=== PATIENT | female | born 2000 | race Caucasian/White ===

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

== ENCOUNTER → 2020-01-08 12:10 | Outpatient (BNVA) | payer SELFPAY | PROVIDERS: PCP Nurse Practitioner; Referring Provider Nurse Practitioner Family; Visit Provider Nurse Practitioner Family | DX: R10.9 Unspecified abdominal pain (principal) | CPT/HCPCS: 81000; 81025; 87529 ==

== ENCOUNTER → 2020-05-13 15:35 | Outpatient (BNVA) | payer OTHER, SELFPAY | PROVIDERS: PCP Nurse Practitioner | DX: Z11.59 Encounter for screening for other viral diseases (principal) | CPT/HCPCS: 87635 ==

== ENCOUNTER → 2020-12-16 17:03 | Outpatient (BNVA) | payer SELFPAY | PROVIDERS: PCP Nurse Practitioner Family; Visit Provider Family Medicine Adult Medicine | DX: N39.0 Urinary tract infection, site not specified (principal); Z30.41 Encounter for surveillance of contraceptive pills | CPT/HCPCS: 81000; 81025 ==

== ENCOUNTER → 2021-03-25 11:29 | Outpatient (BNVA) | payer OTHER, SELFPAY | PROVIDERS: PCP Nurse Practitioner Family; Visit Provider Registered Nurse Neonatal Intensive Care | DX: Z20.822 Contact with and (suspected) exposure to COVID-19 (principal); J40 Bronchitis, not specified as acute or chronic | CPT/HCPCS: 87635 ==

== ENCOUNTER → 2021-04-30 11:45 | Outpatient (BNVA) | payer SELFPAY | PROVIDERS: PCP Nurse Practitioner Family; Visit Provider Family Medicine | DX: E28.2 Polycystic ovarian syndrome (principal); F41.9 Anxiety disorder, unspecified; F42.9 Obsessive-compulsive disorder, unspecified; L65.9 Nonscarring hair loss, unspecified; N39.0 Urinary tract infection, site not specified; Z30.41 Encounter for surveillance of contraceptive pills; Z68.41 Body mass index [BMI] 40.0-44.9, adult; Z76.89 Persons encountering health services in other specified circumstances | CPT/HCPCS: 80053; 83036; 84443; 85025 ==

== ENCOUNTER → 2021-05-28 13:44 | Outpatient (BNVA) | payer SELFPAY | PROVIDERS: PCP Family Medicine; Visit Provider Nurse Practitioner | DX: D50.9 Iron deficiency anemia, unspecified (principal) | CPT/HCPCS: 82728; 83550; 85014; 85018 ==

== ENCOUNTER → 2021-06-19 13:49 | Outpatient (BNVA) | payer SELFPAY | PROVIDERS: PCP Family Medicine; Visit Provider Family Medicine | DX: L65.9 Nonscarring hair loss, unspecified (principal); D50.9 Iron deficiency anemia, unspecified; F41.1 Generalized anxiety disorder; F41.0 Panic disorder [episodic paroxysmal anxiety] | CPT/HCPCS: 82306; 82728; 83550; 84439; 84443; 84481; 85014; 85018 ==

== ENCOUNTER 2021-07-24 18:52 | Emergency (ER) | payer SELFPAY ==
[2021-07-24 19:05] VITALS: BP 145/94; PULSE 101; RESP 18; TEMP 36.3; O2SAT 98; BMI 39.4
--- NOTE | 2021-07-24 19:16 | ED_ITS ---
HPI - Dental/Oral General: Chief complaint: Dental/Oral Stated complaint: [place] Teeth Pain\Jaw Crocked Time Seen by Provider: 07/24/21 19:12 Source: patient Mode of arrival: ambulatory Limitations: no limitations History of Present Illness: HPI Narrative: 21-year-old female who states that her wisdom teeth been coming in for months causing her pain for months and feeling like her jaws malaligned. States pain worsened today she rates it a 3 out of 10 denies any difficulty swallowing denies any fever denies any neck pain. She has not seen anyone for this. Associated symptoms: Denies fever(s) Review of Systems Const: Denies: fever(s), chills, body aches or change in appetite Eyes: Denies: blurry vision or eye discomfort ENMT: Reports: dental pain; Denies: throat pain Card: Denies: chest pain Resp: Denies: dyspnea GI: Denies: abdominal pain, nausea, vomiting or diarrhea : Denies: dysuria Musc: Denies: neck pain or back pain Skin/Breast: Denies: rash Neuro: Denies: headache(s) Psych: Denies: depression Gucci/Lymph: Denies: easy bruising All/Imm: Denies: urticaria PFSH ED PFSH: Medical History Anxiety No pertinent past medical history neghx: htn,dm,thyroid,dvt/pe Obsessive compulsive disorder PCOS (polycystic ovarian syndrome) Surgical History No pertinent past surgical history Family History Grandmother Ovarian cancer Maternal-- dx age 70 Uterine cancer Maternal-- dx age 70 Stroke Maternal Denies family history of Colon cancer Diabetes Heart disease Hypercholesteremia Breast cancer Hypertension Thyroid disease Social History Smoking and tobacco status: never smoked Alcohol intake: never Additional social history: - Tobacco use: Never Alcohol use: denies Drug use: denies Female Reproductive History: Date of last menstrual period: 11/29/19 Para: 0 Physical Exam Const: COMMON NORMALS: no acute distress, patient oriented x3 and healthy appearing HENMT: COMMON NORMALS: normocephalic and atraumatic HEAD & SCALP: normocephalic and atraumatic OTHER: No inflammation or abscess wisdom teeth are coming in painful to touch Eye: COMMON NORMALS: Equal, round and reactive pupils present and EOMs intact bilaterally PUPIL: Yes Equal, round and reactive pupils present Neck/C-Spine: COMMON NORMALS: full ROM and supple Chest: COMMONS NORMALS: normal inspection of the chest and normal palpation of entire chest wall Resp: COMMON NORMALS: normal respiratory effort, No retractions, No use of accessory muscles and clear to auscultation bilaterally AUSCULTATION: clear to auscultation bilaterally Cardio: COMMON NORMALS: regular rate, regular rhythm and No murmurs present (Cardio) RATE: regular rate RHYTHM: regular rhythm GI: COMMON NORMALS: Normal to inspection, nondistended, normoactive bowel sounds present, Soft to palpation, non-tender and no masses PALPATION: Yes Soft to palpation Extremity: COMMON NORMALS: normal to inspection and full ROM Neuro: COMMON NORMALS: patient oriented x3, moves all extremities and no focal motor deficits Psych: COMMON NORMALS: mental status grossly normal, Normal thought process present and cooperative THOUGHT PROCESS: Normal thought process present Skin: COMMON NORMALS: no rashes or lesions noted and no wounds GENERAL SKIN EXAM: no rashes or lesions noted Course Vital Signs: Vital signs: Vital Signs Temperature 97.3 F L 07/24/21 19:05 Pulse Rate 101 H 07/24/21 19:05 Respiratory Rate 18 07/24/21 19:05 Blood Pressure 145/94 07/24/21 19:05 Pulse Oximetry 98 07/24/21 19:05 MDM - Dental/Oral MDM Narrative: Medical decision making narrative: Patient presents with dental pain from her wisdom teeth coming in she is well-appearing here no abscess no trismus she stable for discharge will prescribe her hydrocodone she is to follow-up with a dentist Discharge Plan Discharge Patient Disposition: Home Clinical Impression: Pain, dental Condition: Stable Prescriptions: New hydrocodone-acetaminophen 5-325 mg tablet 1 tab PO Q6H PRN (Reason: pain) Qty: 14 RF: 0 No Action albuterol sulfate [Ventolin HFA] 90 mcg/actuation HFA aerosol inhaler 2 puff inhalation Q6H PRN (Reason: shortness of breath or wheezing) Qty: 6.7 RF: 0 venlafaxine 37.5 mg capsule,extended release 24hr 37.5 mg PO DAILY Qty: 30 RF: 1 ibuprofen-diphenhydramine cit [Ibuprofen PM] 200-38 mg tablet 2 tab PO BEDTIME PRN (Reason: Headache) RF: 0 ondansetron 4 mg tablet,disintegrating 4 mg PO Q8H PRN (Reason: nausea and vomiting) Qty: 14 RF: 0 norgestimate-ethinyl estradiol [Sprintec (28)] 0.25-35 mg-mcg tablet 1 tab PO ONCE Qty: 84 RF: 3 Discharge Orders: Discharge ED (Routine); Ordered 07/24/21 Ordered By: Everett Peter Referrals: Jacob Parikh DO [Primary Care Provider] - Discharge Diet: Advance as tolerated Discharge Activity: Resume usual activity Patient Instructions: Toothache (ED), Opioid Safety Coding Level of Care Code ED Tactical/Mobile Watch Officer for Sandhya Davis
[2021-07-24] MEDS: HYDROcodone-acetaminophen 5-325 mg Tablet 1 TAB PO (19:35)
[2021-07-24 19:37] VITALS: RESP 16
== END 2021-07-24 19:38 | disposition home or self-care (01) ==
PROVIDERS: Emergency Provider Emergency Medicine; PCP Family Medicine
DX: K08.89 Other specified disorders of teeth and supporting structures (principal)
CPT/HCPCS: 99282

== ENCOUNTER → 2021-08-29 11:58 | Outpatient (BNVA) | payer SELFPAY | PROVIDERS: PCP Family Medicine; Visit Provider Nurse Practitioner | DX: Z20.828 Contact with and (suspected) exposure to other viral communicable diseases (principal) | CPT/HCPCS: 87635 ==

== ENCOUNTER → 2022-12-01 10:06 | Outpatient (BNVA) | payer OTHER, SELFPAY | PROVIDERS: PCP Family Medicine; Visit Provider Family Medicine | DX: Z68.41 Body mass index [BMI] 40.0-44.9, adult (principal) | CPT/HCPCS: 80053; 80061; 83036; 85025 ==

== ENCOUNTER 2022-12-09 10:12 | Emergency (ER) | payer OTHER, SELFPAY ==
[2022-12-09 10:19] VITALS: BP 163/100; PULSE 113; RESP 17; TEMP 36.6; O2SAT 95; BMI 41.8
--- NOTE | 2022-12-09 11:11 | W.ED.GENADLT ---
HPI - General Adult General: Chief complaint: Upper Respiratory Infection Stated complaint: abd pain/n/v Time Seen by Provider: 12/09/22 10:41 Source: patient Mode of arrival: ambulatory Limitations: no limitations History of Present Illness: Patient is a 22-year-old female presents to ED today with a complaint of sore throat, cough, congestion, body aches, fevers of up to 102, nausea, and vomiting. She states sore throat seem to start first and presented approximately 3 to 4 days ago and the other symptoms have progressed from there. She states nausea and vomiting has only been present today. No bloody emesis. She reports some mild abdominal cramping. No diarrhea. Denies sick contacts. She states she initially thought symptoms might be related to COVID but has done two home COVID test with both which came back as negative. Severity: moderate Relieving factors: none Exacerbating factors: none Associated symptoms: Reports nausea and vomiting; Deny chest pain, headache(s) or rash Treatments prior to arrival: none Review of Systems Const: Reports: fever(s) and body aches Eyes: Denies: change in vision, blurry vision, photophobia, floaters or seeing flashes ENMT: Reports: throat pain, odynophagia and nasal congestion; Denies: ear or mastoid pain or nasal discharge Card: Denies: chest pain Resp: Reports: productive cough and chest congestion; Denies: wheezing or hemoptysis GI: Reports: abdominal pain (cramping), nausea and vomiting; Denies: hematemesis or diarrhea : Denies: flank pain, dysuria or hematuria Musc: Denies: neck pain, back pain, extremity pain or joint pain Skin/Breast: Denies: rash Neuro: Denies: headache(s), numbness in extremities, weakness in extremities, sensory changes or dizziness PFS ED PFSH: Medical History Anxiety with depression BMI 40.0-44.9, adult Contraceptive management Dyspareunia Generalized anxiety disorder with panic attacks Genital herpes Viral culture positive for HSV-1 Microcytic anemia No pertinent past medical history neghx: htn,dm,thyroid,dvt/pe Obsessive compulsive disorder PCOS (polycystic ovarian syndrome) TMJ (temporomandibular joint syndrome) Surgical History No pertinent past surgical history Family History Grandmother Ovarian cancer Maternal-- dx age 70 Uterine cancer Maternal-- dx age 70 Stroke Maternal Denies family history of Colon cancer Diabetes Heart disease Hypercholesteremia Breast cancer Hypertension Thyroid disease Social History Smoking and tobacco status: current every day smoker e-cigarettes E-Cigarette Details: vaporizer device Alcohol intake: never Lives independently: Yes Marital status: Single Number of children: 0 Current occupational status: employed 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 Current gender identity: Female Special vincent needs: No Agree to transfusion: Yes Additional social history: - Tobacco use: Never Alcohol use: denies Drug use: denies Female Reproductive History: Para: 0 Physical Exam Const: COMMON NORMALS: no acute distress, patient oriented x3, no limitations, alert and well nourished GENERAL APPEARANCE: cooperative NUTRITIONAL APPEARANCE: obese ORIENTATION/CONSCIOUSNESS: Yes awake, Yes oriented to person, Yes oriented to place and Yes oriented to time HENMT: COMMON NORMALS: normocephalic, atraumatic and Normal external nose present HEAD & SCALP: normal to inspection, normocephalic and atraumatic FACE & SINUS: normal facial exam NOSE: Normal external nose present MOUTH: Normal oral and palatal mucosa present, lip normal and tongue normal THROAT: posterior oropharynx normal, uvula midline and abnormal tonsil (small exudate L tonsil) Eye: GENERAL EYE: appearance normal, both eyes and all related structures Neck/C-Spine: COMMON NORMALS: full ROM, no lymphadenopathy and no meningeal signs Chest: COMMONS NORMALS: normal inspection of the chest and normal palpation of entire chest wall Resp: COMMON NORMALS: normal respiratory effort and clear to auscultation bilaterally AUSCULTATION: clear to auscultation bilaterally Cardio: COMMON NORMALS: regular rate and regular rhythm RATE: regular rate RHYTHM: regular rhythm OTHER: triage vitals show tachycardia but patient on monitor during my exam and HR in the 90s GI: COMMON NORMALS: Normal to inspection, nondistended, normoactive bowel sounds present, Soft to palpation, non-tender, No hepatosplenomegaly present and no masses PALPATION: Yes Soft to palpation and Yes No hepatosplenomegaly present : COMMON NORMALS: Yes no CVA tenderness BLADDER/KIDNEY EXAM: Yes no CVA tenderness Back/Pelvis: COMMON NORMALS: no CVA tenderness Extremity: COMMON NORMALS: normal to inspection GENERAL: Yes normal exam except as noted Neuro: CYNTHIA COMA SCALE: document GCS findings Cynthia coma scale eye opening: Spontaneous Cynthia coma scale verbal response: Orientated [place] coma scale motor response: Obey commands Cynthia coma scale total score: 15 COMMON NORMALS: patient oriented x3 SENSORIUM/ORIENTATION: Yes alert, Yes oriented to person, Yes oriented to place and Yes oriented to time MENINGEAL SIGNS: Yes no meningeal signs Skin: COMMON NORMALS: no rashes or lesions noted GENERAL SKIN EXAM: no rashes or lesions noted Course Vital Signs: Vital signs: Vital Signs Temperature 97.8 F 12/09/22 10:19 Pulse Rate 113 H 12/09/22 10:19 Respiratory Rate 17 12/09/22 10:19 Blood Pressure 163/100 12/09/22 10:19 Pulse Oximetry 97 12/09/22 12:06 Oxygen Delivery Me thod Room Air 12/09/22 12:06 [facility] - General Adult Medical Decision Making Patient appears in no acute distress. Vital signs are stable. She was initially triaged with tachycardia however this resolved and during my exam heart rate in the 90s. She is hypertensive. Recommend she keep a blood pressure log of this and follow-up with primary care. Nausea improved while here and was able to eat/drink without issues. She will be sent home with a prescription for Zofran. Blood work overall is unremarkable. CXR personal interpretation is suspicious for left lower lobe pneumonia. Respiratory panel collected and was pending at time of discharge but is at this time and positive for adenovirus. She was placed on antibiotics for the LLL pneumonia. Recommend follow-up with primary care in a few days if symptoms do not seem to be improving. Return ED precautions given. Lab Data 12/09/22 11:19 12/09/22 11:19 Laboratory Results WBC 5.0 10^3/uL (4.0-10.0) 12/09/22 11:19 RBC 4.58 10^6/uL (4.1-5.3) 12/09/22 11:19 Hgb 12.9 g/dL (11.5-15.3) 12/09/22 11:19 Hct 39.7 % (37.0-47.0) 12/09/22 11:19 MCV 86.7 fl (81-99) 12/09/22 11:19 MCH 28.2 pg (28.0-34.0) 12/09/22 11:19 MCHC 32.5 g/dL (30.0-36.0) 12/09/22 11:19 RDW 12.0 % (12.1-15.1) L 12/09/22 11:19 Plt Count 163 10^3/cmm (130-400) 12/09/22 11:19 MPV 10.6 fL (7.4-10.4) H 12/09/22 11:19 Neut % (Auto) 80.1 % 12/09/22 11:19 Lymph % (Auto) 12.3 % 12/09/22 11:19 [place] % (Auto) 6.4 % 12/09/22 11:19 Eos % (Auto) 0.2 % 12/09/22 11:19 Baso % (Auto) 0.4 % 12/09/22 11:19 Neut # (Auto) 3.98 10^3/uL (1.8-7.7) 12/09/22 11:19 Lymph # (Auto) 0.6 10^3/uL (0.8-4.8) L 12/09/22 11:19 [place] # (Auto) 0.3 10^3/uL (0.2-0.9) 12/09/22 11:19 Eos # (Auto) 0.0 10^3/uL (0.0-0.8) 12/09/22 11:19 Baso # (Auto) 0.0 10^3/uL (0.0-0.1) 12/09/22 11:19 Nucleated RBC % (auto) 0 % 12/09/22 11:19 Nucleated RBCs # 0.0 /100WBC 12/09/22 11:19 Sodium 137 mmol/L (136-145) 12/09/22 11:19 Potassium 3.5 mmol/L (3.5-5.1) 12/09/22 11:19 Chloride 103 mmol/L (98-107) 12/09/22 11:19 Carbon Dioxide 22 mmol/L (22-29) 12/09/22 11:19 Anion Gap 15.5 (5-19) 12/09/22 11:19 BUN 7 mg/dL (6-20) 12/09/22 11:19 Creatinine 0.6 mg/dL (0.5-0.9) 12/09/22 11:19 GFR Calculation 125.0 mL/min (90-130) 12/09/22 11:19 Glucose 107 mg/dL (65-115) 12/09/22 11:19 Calculated Osmolality 282 mOsm/kg (285-295) L 12/09/22 11:19 Calcium 8.3 mg/dL (8.5-10.5) L 12/09/22 11:19 Total Bilirubin 0.6 mg/dL (0.15-1.2) 12/09/22 11:19 AST 14 U/L (0-32) 12/09/22 11:19 ALT 16 U/L (0-33) 12/09/22 11:19 Alkaline Phosphatase 54 U/L (35-105) 12/09/22 11:19 Total Protein 7.0 g/dL (6.6-8.7) 12/09/22 11:19 Albumin 3.9 g/dL (3.5-5.2) 12/09/22 11:19 Globulin 3.1 g/dL (1.3-4.6) 12/09/22 11:19 HCG, Qual Negative (Negative) 12/09/22 11:11 Nasal Influ A H1 2009 PCR Not detected (NOT DETECT) 12/09/22 11:50 Adenovirus (PCR) Detected (NOT DETECT) A 12/09/22 11:50 C. pneumoniae DNA (PCR) Not detected (NOT DETECT) 12/09/22 11:50 Coronavirus 229E (PCR) Not detected (NOT DETECT) 12/09/22 11:50 Human Metapneumovir PCR Not detected (NOT DETECT) 12/09/22 11:50 Influenza A (H1) PCR Not detected (NOT DETECT) 12/09/22 11:50 Influenza A (H3) PCR Not detected (NOT DETECT) 12/09/22 11:50 Influenza Type A (PCR) Not detected (NOT DETECT) 12/09/22 11:50 Influenza Type B (PCR) Not detected (NOT DETECT) 12/09/22 11:50 M. pneumoniae (PCR) Not detected (NOT DETECT) 12/09/22 11:50 Parainfluenza 1 (PCR) Not detected (NOT DETECT) 12/09/22 11:50 Parainfluenza 2 (PCR) Not detected (NOT DETECT) 12/09/22 11:50 Parainfluenza 3 (PCR) Not detected (NOT DETECT) 12/09/22 11:50 Parainfluenza 4 (PCR) Not detected (NOT DETECT) 12/09/22 11:50 RSV Type A (PCR) Not detected (NOT DETECT) 12/09/22 11:50 RSV Type B (PCR) Not detected (NOT DETECT) 12/09/22 11:50 Entero/Rhino (PCR) Not detected (NOT DETECT) 12/09/22 11:50 SARS-CoV-2 (PCR) Not detected (NOT DETECT) 12/09/22 11:50 Group A Strep Rapid Negative (Negative) 12/09/22 11:50 Discharge Plan Discharge Patient Disposition: Home Clinical Impression: Left lower lobe pneumonia Qualifiers: Pneumonia type: due to unspecified organism Qualified Code(s): J18.9 - Pneumonia, unspecified organism Nausea and vomiting Qualifiers: Vomiting type: unspecified Qualified Code(s): R11.2 - Nausea with vomiting, unspecified Condition: Stable Prescriptions: New azithromycin 250 mg tablet See Rx Instructions .ROUTE .COMPLEX Qty: 6 0RF Rx Instructions: take 500 mg today (day 1), then 250 mg for 4 days (days 2-5) ondansetron 4 mg tablet,disintegrating 4 mg PO Q8H PRN (Reason: nausea and vomiting) Qty: 14 0RF amoxicillin-pot clavulanate 875-125 mg tablet 1 tab PO BID Qty: 14 0RF No Action albuterol sulfate [Ventolin HFA] 90 mcg/actuation HFA aerosol inhaler 2 puff inhalation Q6H PRN (Reason: shortness of breath or wheezing) Qty: 6.7 0RF venlafaxine 150 mg capsule,extended release 24hr 150 mg PO DAILY Qty: 30 0RF buspirone 5 mg tablet 5 mg PO BID Qty: 60 0RF sumatriptan succinate 25 mg tablet See Rx Instructions PO .COMPLEX Qty: 10 0RF Rx Instructions: take 1 tab at onset of headache; if no relief may repeat 1 tab after at least 2 hrs; max = 4 tabs/24 hr PO mirtazapine 15 mg tablet See Rx Instructions .ROUTE .COMPLEX Dose Instruction: TAKE 1 TABLET BY MOUTH one hour before bedtime EVERY DAY FOR mental health Rx Instructions: TAKE 1/2 TABLET BY MOUTH one hour before bedtime x 7 days norgestimate-ethinyl estradiol [Sprintec (28)] 0.25-35 mg-mcg tablet 1 tab PO ONCE Qty: 84 3RF Discharge Orders: Discharge ED (Routine); Ordered 12/09/22 Ordered By: Esmer Gama Referrals: Pawan Walsh MD [Primary Care Provider] - Coding Level of Care Code ED Behavioral Health Therapist for Sandhya Davis
[2022-12-09 11:27] LABS: Basophils % 0.4 %; Eosinophils % 0.2 %; Hematocrit 39.7 % (37.0-47.0); Hemoglobin 12.9 g/dL (11.5-15.3); Lymphocytes # 0.6 10^3/uL (0.8-4.8); Lymphocytes % 12.3 %; Mean Corpuscular HGB Conc 32.5 g/dL (30.0-36.0); Mean Corpuscular Hemoglobin 28.2 pg (28.0-34.0); Mean Corpuscular Volume 86.7 fl (81-99); Mean Platelet Volume 10.6 fL (7.4-10.4); Monocytes # 0.3 10^3/uL (0.2-0.9); Monocytes % 6.4 %; Neutrophils # 3.98 10^3/uL (1.8-7.7); Neutrophils % 80.1 %; Nucleated Red Blood Cells % 0 %; Platelet Count 163 10^3/cmm (130-400); Red Blood Count 4.58 10^6/uL (4.1-5.3)
[2022-12-09] MEDS: sodium chloride 0.9% 1,000 ML 999 ML IV (11:30)
[2022-12-09] MEDS: ondansetron 2 mg/ML SDV 2 mL 4 MG IVP (11:30)
[2022-12-09 11:43] LABS: Alanine Aminotransferase 16 U/L (0-33); Albumin Level 3.9 g/dL (3.5-5.2); Alkaline Phosphatase 54 U/L (35-105); Anion Gap 15.5 (5-19); Aspartate Amino Transferase 14 U/L (0-32); Blood Urea Nitrogen 7 mg/dL (6-20); Calcium 8.3 mg/dL (8.5-10.5); Carbon Dioxide 22 mmol/L (22-29); Chloride 103 mmol/L (98-107); Globulin 3.1 g/dL (1.3-4.6); Glucose 107 mg/dL (65-115); Osmolality Calculated 282 mOsm/kg (285-295); Potassium 3.5 mmol/L (3.5-5.1); Sodium 137 mmol/L (136-145); Total Bilirubin 0.6 mg/dL (0.15-1.2)
[2022-12-09 12:06] VITALS: O2SAT 97
[2022-12-09 12:37] LABS: Rapid Strep A Test Negative (Negative)
--- NOTE | 2022-12-09 12:47 | XR_ITS ---
WS: [id number] EXAMINATION: XR chest 1V portable [id number] REASON FOR EXAM: cough, fevers COMPARISON: 11/17/2019 ORDER DATE: 12/09/2022 12:54 PM TECHNIQUE: A single, portable frontal chest x-ray was obtained. X-RAY FINDINGS: There is a poorly defined hazy opacity in the left base which obscures the left hemidiaphragm outline s lateral to the left heart border which is faintly defined. No pneumothorax. Cardiomediastinal silhouette is normal. No evidence for pulmonary edema. Soft tissue and osseous structures are unremarkable. No tubes or lines are present. XR/XR chest 1V portable [id number] IMPRESSION: There is a nonspecific increased opacity in the left base which unfortunately i s associated with the large breast presenting increased soft tissue density als o. There is probably either a small infiltrate and/or a small effusion in addit ion but could be better defined bilateral chest view or 15 degrees MAURITANIAN projecti on.
[2022-12-09 13:43] LABS: HCG, Serum Qual Negative (Negative)
[2022-12-09 13:49] LABS: Adenovirus Detected (NOT DETECT); Chlamydia Pneumoniae Not Detected (NOT DETECT); Coronavirus 229E,HKU1,NL63,OC4 Not Detected (NOT DETECT); Human Metapneumovirus Not Detected (NOT DETECT); Human Rhinovirus/Enterovirus Not Detected (NOT DETECT); Influenza A Not Detected (NOT DETECT); Influenza A H1 Not Detected (NOT DETECT); Influenza A H1-2009 Not Detected (NOT DETECT); Influenza A H3 Not Detected (NOT DETECT); Influenza B Not Detected (NOT DETECT); Mycoplasma Pneumoniae Not Detected (NOT DETECT); Parainfluenza Virus Type 1 Not Detected (NOT DETECT); Parainfluenza Virus Type 2 Not Detected (NOT DETECT); Parainfluenza Virus Type 3 Not Detected (NOT DETECT); Parainfluenza Virus Type 4 Not Detected (NOT DETECT); Respiratory Syncytial Virus A Not Detected (NOT DETECT); Respiratory Syncytial Virus B Not Detected (NOT DETECT); SARS-COV-2 Not Detected (NOT DETECT)
== END 2022-12-09 13:16 | disposition home or self-care (01) ==
PROVIDERS: Emergency Provider Physician Assistant; PCP Family Medicine
DX: J18.9 Pneumonia, unspecified organism (principal); R11.2 Nausea with vomiting, unspecified; Z20.822 Contact with and (suspected) exposure to COVID-19; F17.290 Nicotine dependence, other tobacco product, uncomplicated
CPT/HCPCS: 71045; 80053; 84703; 85025; 87081; 87486; 87581; 87633; 87880; 96361; 96374; 99284; J2405; J7030

== ENCOUNTER 2022-12-12 10:41 | Observation (INO) | payer OTHER, SELFPAY ==
[2022-12-12] VITALS (10 sets, daily range): BP systolic 96–139; BP diastolic 62–85; PULSE 81–107; RESP 16–17; TEMP 36.6–36.9; O2SAT 95–98; BMI 41.8
--- NOTE | 2022-12-12 11:04 | XRR_ITS ---
PROCEDURE INFORMATION: Exam: XR Chest Exam date and time: 12/12/2022 11:12 AM Age: 22 years old Clinical indication: Cough; Additional info: Pneumonia, otpt abx failure TECHNIQUE: Imaging protocol: Radiologic exam of the chest. Views: 2 views. COMPARISON: CT abdomen pelvis w con* [id number] 12/02/2019 2:00 PM FINDINGS: Lungs: Left basilar consolidation concerning for pneumonia. The remainder of the lung parenchyma is clear. Pleural spaces: No pneumothorax. No pleural effusion. Heart/Mediastinum: The cardiomediastinal silhouette is within normal limits. Bones/joints: Unremarkable. XR/XR chest 2V* [id number] IMPRESSION: Left basilar consolidation concerning for pneumonia.
[2022-12-12 11:38] LABS: Basophils % 0.3 %; Eosinophils % 0.9 %; Hematocrit 39.5 % (37.0-47.0); Hemoglobin 12.9 g/dL (11.5-15.3); Lymphocytes # 1.1 10^3/uL (0.8-4.8); Lymphocytes % 32.9 %; Mean Corpuscular HGB Conc 32.7 g/dL (30.0-36.0); Mean Corpuscular Volume 85.9 fl (81-99); Mean Platelet Volume 10.7 fL (7.4-10.4); Monocytes # 0.2 10^3/uL (0.2-0.9); Monocytes % 6.3 %; Neutrophils % 59.6 %; Nucleated Red Blood Cells % 0 %; Platelet Count 143 10^3/cmm (130-400); White Blood Count 3.2 10^3/uL (4.0-10.0)
[2022-12-12] MEDS: sodium chloride 0.9% 1,000 ML 999 ML IV (11:45)
[2022-12-12] MEDS: ondansetron 2 mg/ML SDV 2 mL 4 MG IVP (11:46)
[2022-12-12 11:59] LABS: Alanine Aminotransferase 16 U/L (0-33); Albumin Level 3.3 g/dL (3.5-5.2); Alkaline Phosphatase 43 U/L (35-105); Anion Gap 16.3 (5-19); Aspartate Amino Transferase 17 U/L (0-32); Blood Urea Nitrogen 4 mg/dL (6-20); Calcium 8.6 mg/dL (8.5-10.5); Carbon Dioxide 21 mmol/L (22-29); Chloride 97 mmol/L (98-107); Globulin 3.8 g/dL (1.3-4.6); Glucose 84 mg/dL (65-115); Lactate (Lactic Acid level) 0.8 mmol/L (0.5-2.2); Osmolality Calculated 268 mOsm/kg (285-295); Potassium 3.3 mmol/L (3.5-5.1); Sodium 131 mmol/L (136-145); Total Bilirubin 0.5 mg/dL (0.15-1.2); Total Protein 7.1 g/dL (6.6-8.7)
[2022-12-12 12:01] LABS: Bilirubin Urine Neg (Negative); Blood Urine 3+ (Negative); Glucose Urine UA Norm (Normal); Ketones Urine 1+ (Negative); Leukocyte Esterase Urine 1+ (Negative); Nitrate Urine Negative (Negative); Protein Urine Neg (Negative); Specific Gravity, Urine 1.005 (1.005-1.030); Sulfosalicylic Acid Urine Negative (Negative); Urine Appearance SL Hazy (CLEAR); Urine Color Yellow (Yellow); Urobilinogen Urine Norm (Negative); pH Urine 8 (5-7)
[2022-12-12 12:02] LABS: Add Urine Microscopic? YES
[2022-12-12 12:04] LABS: Bacteria Urine 2+ /hpf; Mucus Urine TRACE /hpf; WBC Urine 15-25 /hpf (0-5)
[2022-12-12 12:05] LABS: Add Urine Culture? No
--- NOTE | 2022-12-12 12:05 | W.ED.GENADLT ---
HPI - General Adult General: Chief complaint: General Medical Stated complaint: cough/sob/n/v/fever Time Seen by Provider: 12/12/22 10:43 History of Present Illness: Patient presents to the ER with complaints of worsening shortness of breath and pneumonia. Patient was originally seen on 411 diagnosed with pneumonia and was adenovirus positive, discharged home on azithromycin and Augmentin after she refused admission. 2 days later patient went to urgent care for worsening symptoms and fever these antibiotics were stopped and patient was placed on Levaquin. Patient took 1 dose yesterday and did not take her dose today. Patient states her fever got up to 103.8 and she has had intermittent nausea. Patient states that she is ready now to be admitted MD complaint: Pneumonia outpatient failure Onset (ago): day(s) (4 days ago) Location: chest (Left lower lobe pneumonia) Radiation: non-radiation Severity: moderate Relieving factors: none Exacerbating factors: none Associated symptoms: Reports cough, dyspnea, nausea, short of breath and vomiting; Deny chest pain, headache(s), rash or palpitations Treatments prior to arrival: other (2 days of Augmentin and azithromycin followed by 1 day of Levaquin) Review of Systems General: Reports: 10 or more systems reviewed and unremarkable except in HPI and below Const: Reports: fever(s), chills and body aches Eyes: Denies: change in vision Card: Denies: chest pain, palpitations or irregular heart rhythm Resp: Reports: dyspnea and productive cough GI: Reports: nausea and vomiting; Denies: abdominal pain or diarrhea : Denies: flank pain, difficulty voiding or dysuria Musc: Denies: neck pain or back pain Skin/Breast: Denies: rash or pruritus Neuro: Denies: headache(s), numbness in extremities or weakness in extremities Psych: Denies: anxiety or depression Endo: Denies: polyuria, polydipsia or tired all the time PFS ED PFSH: Medical History Anxiety with depression BMI 40.0-44.9, adult Contraceptive management Dyspareunia Generalized anxiety disorder with panic attacks Genital herpes Viral culture positive for HSV-1 Microcytic anemia No pertinent past medical history neghx: htn,dm,thyroid,dvt/pe Obsessive compulsive disorder PCOS (polycystic ovarian syndrome) TMJ (temporomandibular joint syndrome) Surgical History No pertinent past surgical history Family History Grandmother Ovarian cancer Maternal-- dx age 70 Uterine cancer Maternal-- dx age 70 Stroke Maternal Denies family history of Colon cancer Diabetes Heart disease Hypercholesteremia Breast cancer Hypertension Thyroid disease Social History Smoking and tobacco status: current every day smoker e-cigarettes E-Cigarette Details: vaporizer device Alcohol intake: never Lives independently: Yes Marital status: Single Number of children: 0 Current occupational status: employed 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 Current gender identity: Female Special vincent needs: No Agree to transfusion: Yes Additional social history: - Tobacco use: Never Alcohol use: denies Drug use: denies Female Reproductive History: Para: 0 Physical Exam Const: COMMON NORMALS: no acute distress, average body habitus, patient oriented x3, no limitations, healthy appearing, alert and well nourished HENMT: COMMON NORMALS: normocephalic, atraumatic, hearing grossly normal bilaterally, external ears normal and Normal external nose present HEAD & SCALP: normocephalic and atraumatic NOSE: Normal external nose present EXTERNAL EAR: Yes external ears normal Eye: COMMON NORMALS: Equal, round and reactive pupils present, EOMs intact bilaterally, conjunctivae normal and no scleral icterus CONJUNCTIVA: Yes conjunctivae normal PUPIL: Yes Equal, round and reactive pupils present Neck/C-Spine: COMMON NORMALS: full ROM, no lymphadenopathy, supple, no meningeal signs, no JVD and Thyroid normal THYROID: Thyroid normal Chest: COMMONS NORMALS: normal inspection of the chest and normal palpation of entire chest wall Resp: EFFORT & INSPECTION: Yes able to speak in complete sentences and Yes symmetric chest movement AUSCULTATION: rhonchi left lower Cardio: COMMON NORMALS: no JVD, regular rate, regular rhythm, S1 normal heart sound present and S2 normal heart sound present RATE: regular rate RHYTHM: regular rhythm HEART SOUNDS: S1 normal heart sound present and S2 normal heart sound present GI: COMMON NORMALS: Normal to inspection, nondistended, normoactive bowel sounds present, Soft to palpation, non-tender, No hepatosplenomegaly present and no masses PALPATION: Yes Soft to palpation and Yes No hepatosplenomegaly present : COMMON NORMALS: Yes no CVA tenderness BLADDER/KIDNEY EXAM: Yes no CVA tenderness Back/Pelvis: COMMON NORMALS: no CVA tenderness Neuro: COMMON NORMALS: patient oriented x3 SENSORIUM/ORIENTATION: Yes alert MENINGEAL SIGNS: Yes no meningeal signs Course Vital Signs: Vital signs: Vital Signs Temperature 98.4 F 12/12/22 10:51 Pulse Rate 107 H 12/12/22 10:51 Respiratory Rate 16 12/12/22 11:01 Blood Pressure 139/76 12/12/22 10:51 Pulse Oximetry 97 12/12/22 10:51 Oxygen Delivery Me thod Room Air 12/12/22 10:51 MDM - General Adult Medical Decision Making Presents to the ER with complaints of worsening pneumonia. Patient was seen here on 411 diagnosed with pneumonia put on Augmentin and azithromycin. 2 days later she felt like she was not improving she went to the urgent care these medicines were stopped and patient was placed on Levaquin 750. Patient presents to the ER today complaining of nausea vomiting fevers up to 103.8 and said she is even worse. Patient took her dose of Levaquin yesterday. Check chest x-ray was repeated which did show a left lower lobe pneumonia, blood work was obtained which showed a white count of 3.2 negative negative lactic acid and procalcitonin, lab work from her prior visit was reviewed which did show she was positive for adenovirus. It is thought since she could be considered outpatient failure that she may need to be inpatient with IV antibiotics. Dr. Villalpando was consulted he agreed to come down and see the patient in ER. Patient will be admitted for IV antibiotics. Differential Diagnosis Outpatient failure pneumonia. Medical Records I reviewed the patient's medical records. Lab Data I reviewed the patient's lab results. 12/12/22 11:27 12/12/22 11:27 Radiology Impressions Chest X-Ray 12/12/22 11:04 IMPRESSION: Left basilar consolidation concerning for pneumonia. Laboratory Results WBC 3.2 10^3/uL (4.0-10.0) L 12/12/22 11:27 RBC 4.60 10^6/uL (4.1-5.3) 12/12/22 11:27 Hgb 12.9 g/dL (11.5-15.3) 12/12/22 11: Hct 39.5 % (37.0-47.0) 12/12/22 11: MCV 85.9 fl (81-99) 12/12/22 11: MCH 28.0 pg (28.0-34.0) 12/12/22 11: MCHC 32.7 g/dL (30.0-36.0) 12/12/22 11: RDW 12.0 % (12.1-15.1) L 12/12/22 11: Plt Count 143 10^3/cmm (130-400) 12/12/22 11: MPV 10.7 fL (7.4-10.4) H 12/12/22 11: Neut % (Auto) 59.6 % 12/12/22 11: Lymph % (Auto) 32.9 % 12/12/22 11: [place] % (Auto) 6.3 % 12/12/22 11: Eos % (Auto) 0.9 % 12/12/22 11: Baso % (Auto) 0.3 % 12/12/22 11: Neut # (Auto) 1.90 10^3/uL (1.8-7.7) 12/12/22 11: Lymph # (Auto) 1.1 10^3/uL (0.8-4.8) 12/12/22 11: [place] # (Auto) 0.2 10^3/uL (0.2-0.9) 12/12/22 11: Eos # (Auto) 0.0 10^3/uL (0.0-0.8) 12/12/22 11: Baso # (Auto) 0.0 10^3/uL (0.0-0.1) 12/12/22 11: Nucleated RBC % (auto) 0 % 12/12/22 11: Nucleated RBCs # 0.0 /100WBC 12/12/22 11: Sodium 131 mmol/L (136-145) L 12/12/22 11: Potassium 3.3 mmol/L (3.5-5.1) L 12/12/22 11: Chloride 97 mmol/L (98-107) L 12/12/22 11:27 Carbon Dioxide 21 mmol/L (22-29) L 12/12/22 11:27 Anion Gap 16.3 (5-19) 12/12/22 11:27 BUN 4 mg/dL (6-20) L 12/12/22 11:27 Creatinine 0.6 mg/dL (0.5-0.9) 12/12/22 11:27 GFR Calculation 125.0 mL/min (90-130) 12/12/22 11:27 Glucose 84 mg/dL (65-115) 12/12/22 11:27 Calculated Osmolality 268 mOsm/kg (285-295) L 12/12/22 11:27 Lactate 0.8 mmol/L (0.5-2.2) 12/12/22 11:27 Calcium 8.6 mg/dL (8.5-10.5) 12/12/22 11: Magnesium 2.0 mg/dL (1.7-2.3) 12/12/22 11:27 Total Bilirubin 0.5 mg/dL (0.15-1.2) 12/12/22 11:27 AST 17 U/L (0-32) 12/12/22 11:27 ALT 16 U/L (0-33) 12/12/22 11:27 Alkaline Phosphatase 43 U/L (35-105) 12/12/22 11:27 Total Protein 7.1 g/dL (6.6-8.7) 12/12/22 11:27 Albumin 3.3 g/dL (3.5-5.2) L 12/12/22 11:27 Globulin 3.8 g/dL (1.3-4.6) 12/12/22 11:27 Procalcitonin 0.10 ng/mL (0-0.5) 12/12/22 11:27 HCG, Qual Negative (Negative) 12/12/22 11:27 Urine Color Yellow (Yellow) 12/12/22 11:28 Urine Appearance Sl hazy (CLEAR) A 12/12/22 11:28 Urine pH 8 (5-7) H 12/12/22 11:28 Ur Specific [place] 1.005 (1.005-1.030) 12/12/22 11:28 Urine Protein Neg (Negative) 12/12/22 11: Urine Glucose (UA) Norm (Normal) 12/12/22 11:28 Urine Ketones 1+ (Negative) H 12/12/22 11:28 Urine Blood 3+ (Negative) H 12/12/22 11:28 Urine Nitrate Negative (Negative) 12/12/22 11:28 Urine Bilirubin Neg (Negative) 12/12/22 11:28 Prot Sulfosalicylic Acd Negative (Negative) 12/12/22 11:28 Urine Urobilinogen Norm mg/dL (Negative) 12/12/22 11:28 Ur Leukocyte Esterase 1+ (Negative) H 12/12/22 11:28 Urine RBC 5-10 /hpf (0-2) H 12/12/22 11:28 Urine WBC 15-25 /hpf (0-5) H 12/12/22 11:28 Ur Squamous Epith Cells 10-15 /hpf (0-5) H 12/12/22 11:28 Amorphous Sediment Not Reportable 12/12/22 11:28 Urine Bacteria 2+ /hpf (NONE) H 12/12/22 11:28 Urine Mucus Trace /hpf 12/12/22 11:28 Discharge Plan Discharge Patient Disposition: Admitted As Inpatient Clinical Impression: Nausea and vomiting, Left lower lobe pneumonia Condition: Stable Prescriptions: No Action levofloxacin 750 mg tablet 750 mg PO DAILY 7 Days Qty: 7 0RF hydrocodone-acetaminophen 5-325 mg tablet 1 tab PO Q4H PRN (Reason: pain) 7 Days Qty: 28 0RF venlafaxine 150 mg capsule,extended release 24hr 150 mg PO DAILY Qty: 30 0RF buspirone 5 mg tablet 5 mg PO BID Qty: 60 0RF sumatriptan succinate 25 mg tablet See Rx Instructions PO .COMPLEX Qty: 10 0RF Rx Instructions: take 1 tab at onset of headache; if no relief may repeat 1 tab after at least 2 hrs; max = 4 tabs/24 hr PO norgestimate-ethinyl estradiol [Sprintec (28)] 0.25-35 mg-mcg tablet 1 tab PO ONCE Qty: 84 3RF ondansetron 4 mg tablet,disintegrating 4 mg PO Q8H PRN (Reason: nausea and vomiting) Qty: 14 0RF ibuprofen 200 mg Capsule 800 mg PO Q6H PRN (Reason: Pain) acetaminophen 325 mg Capsule 650 mg PO QID PRN (Reason: Pain) Referrals: Vaisler,Pawan, MD [Primary Care Provider] - Coding Level of Care Code ED Sales Service Assistant for Chg Susan
[2022-12-12 12:10] LABS: Slide Review Slide Review Perform
[2022-12-12 12:16] LABS: HCG, Serum Qual Negative (Negative)
[2022-12-12] MEDS: piperacillin-tazobactam 3.375 GM in sodium chloride 0.9% (plus) 50 ML IV (13:21)
[2022-12-12] MEDS: acetaminophen 500 mg Tablet 1000 MG PO (13:42)
--- NOTE | 2022-12-12 14:27 | P.HP_ITS ---
Providers/Chief Complaint Admitting Physician: Amos Izquierdo MD Primary Care Provider: Pawan Wlash MD Chief Complaint: cough/sob/n/v/fever History of Present Illness Jaqueline Anne is a 22 year old female with a past medical history of pcos, chronic low back pain, major depression, anxiety, obesity, who presents to [facility] who presents for complaints of cough, fever since last yesterday, progressing to poor appetite, nausea, and vomiting. Patient statest that since last wednesday she has had fever, cough, fatigue and malaise. She has been diagnosed with pneumonia, and has been on 2 course of oral antibiotics. But she coutinues to be symptomatic, but now has nausea, and vomiting, and is unable to keep down liquids. denies flank pain, has chronic back pain, no dysuria, no hematuria, denies chest pain, denies shortness of breath Review of Systems Const: Reports: fever(s), chills, fatigue and malaise GI: Reports: nausea Medications/Allergies Home Medications Medication Instructions Recorded Confirmed Last Taken Type norgestimate 0.25 mg-ethinyl 1 tab PO ONCE #84 tabs 06/02/22 12/12/22 12/11/22 Rx estradiol 35 mcg tablet (Sprintec (28)) buspirone 5 mg tablet 5 mg PO BID #60 tabs 12/01/22 12/12/22 12/11/22 Rx sumatriptan succinate 25 mg tablet See Rx Instructions PO .COMPLEX 12/01/22 12/12/22 Unknown Rx #10 tabs venlafaxine 150 mg 150 mg PO DAILY #30 caps 12/01/22 12/12/22 12/11/22 Rx capsule,extended release 24 hr ondansetron 4 mg disintegrating 4 mg PO Q8H PRN nausea and 12/09/22 12/12/22 Unknown Rx tablet vomiting #14 tabs hydrocodone 5 mg-acetaminophen 325 1 tab PO Q4H PRN pain 7 days #28 12/11/22 12/12/22 Unknown Rx mg tablet tabs levofloxacin 750 mg tablet 750 mg PO DAILY 7 days #7 tabs 12/11/22 12/12/22 Unknown Rx acetaminophen 325 mg capsule 650 mg PO QID PRN Pain 12/12/22 12/12/22 Unknown History ibuprofen 200 mg capsule 800 mg PO Q6H PRN Pain 12/12/22 12/12/22 Unknown History Allergies Allergy/AdvReac Type Severity Reaction Status Date / Time No Known Allergies Allergy Verified 12/11/22 17:41 PFSH Acute PFSH: Medical History Anxiety with depression BMI 40.0-44.9, adult Contraceptive management Dyspareunia Generalized anxiety disorder with panic attacks Genital herpes Viral culture positive for HSV-1 Microcytic anemia No pertinent past medical history neghx: htn,dm,thyroid,dvt/pe Obsessive compulsive disorder PCOS (polycystic ovarian syndrome) TMJ (temporomandibular joint syndrome) Surgical History No pertinent past surgical history Family History Grandmother Ovarian cancer Maternal-- dx age 70 Uterine cancer Maternal-- dx age 70 Stroke Maternal Denies family history of Colon cancer Diabetes Heart disease Hypercholesteremia Breast cancer Hypertension Thyroid disease Social History Smoking and tobacco status: current every day smoker e-cigarettes E-Cigarette Details: vaporizer device Alcohol intake: never Lives independently: Yes Marital status: Single Number of children: 0 Current occupational status: employed 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 Current gender identity: Female Special vincent needs: No Agree to transfusion: Yes Additional social history: - Tobacco use: Never Alcohol use: denies Drug use: denies Female Reproductive History: Para: 0 Vitals/I&O/Wt Last Vital Signs Temp 98.4 F 12/12/22 10:51 Pulse 107 H 12/12/22 10:51 Resp 16 12/12/22 11:01 BP 139/76 12/12/22 10:51 Pulse Ox 97 12/12/22 10:51 O2 Del Method Room Air 12/12/22 14:15 12/11/22 12/12/22 12/12/22 22:59 06:59 14:59 Intake Total 1050 / 1050 Balance 1050 / 1050 Weight last 48 hrs Weight 136.078 kg Physical Exam Const: COMMON NORMALS: no acute distress and patient oriented x3 HENMT: COMMON NORMALS: normocephalic HEAD & SCALP: normocephalic Eye: COMMON NORMALS: Equal, round and reactive pupils present Lymph: LYMPHATIC: lymphadenopathy Resp: COMMON NORMALS: normal respiratory effort, No retractions, No use of accessory muscles and clear to auscultation bilaterally AUSCULTATION: wheezes left lower and left upper Cardio: COMMON NORMALS: regular rate, regular rhythm, S1 normal heart sound present and S2 normal heart sound present RATE: regular rate RHYTHM: regular rhythm HEART SOUNDS: S1 normal heart sound present and S2 normal heart sound present GI: COMMON NORMALS: Normal to inspection, nondistended, normoactive bowel dave nds present, Soft to palpation and non-tender Extremity: COMMON NORMALS: no pedal edema Neuro: COMMON NORMALS: patient oriented x3, CN's II-XII intact bilaterally, moves all extremities, no focal motor deficits and no sensory deficits noted Psych: COMMON NORMALS: mental status grossly normal Data 12/12/22 11:27 12/12/22 11:27 Micro: Microbiology 12/12/22 13:09 Blood Culture - Preliminary Blood SPECIMEN COLLECTED A&P Assessment and plan (1) Left lower lobe pneumonia: (2) Nausea and vomiting: (3) Hypokalemia: (4) Hyponatremia: Plan Left lower lobe pneumonia PLAN -IV rocephin -IV azithromycin -respiratory viral panel -sputum culture -blood culture -duo neb treatment Hyponatremia, dehydration -IV fluids Hypokalemia -replace PO UTI -rocephin Nausea and vommiting -zofran full code lovenox for dvt prophylaxis Attestations Medical Necessity Statement*: patient needs hospitalization, outpatient with observation, for pneumoniae, hyponatremia, hypokalemia, uti Coding Level of Care Code Acute Code for [facility] Fwd Diagnoses Left lower lobe pneumonia J18.9 Nausea and vomiting R11.2 Hypokalemia E87.6 Hyponatremia E87.1
--- NOTE | 2022-12-12 14:58 | XRR_ITS ---
PROCEDURE INFORMATION: Exam: XR Abdomen Exam date and time: 12/12/2022 3:31 PM Age: 22 years old Clinical indication: Abdominal pain; Generalized; Additional info: Kidnsey stone TECHNIQUE: Imaging protocol: Radiologic exam of the abdomen. Views: Frontal supine view of the abdomen. 1 View. COMPARISON: CT abdomen pelvis w con* [id number] 12/02/2019 2:00 PM FINDINGS: Gastrointestinal tract: Nonspecific bowel gas pattern with mild increased gas in the GI tract. Findings could represent mild ileus. No obstructive pattern. Intraperitoneal space: No indication of free air. Multiple nonspecific pelvic calcifications are seen, similar in appearance to 2019 exam, likely pelvic phleboliths. Bones/joints: No acute osseous abnormality. XR/XR KUB portable [id number] IMPRESSION: Nonspecific bowel gas pattern with mild increased gas within the GI tract could indicate mild ileus. No obstructive pattern.
[2022-12-12] MEDS: ipratropium-albuterol 3 mL Neb INHALATION ×3 (15:24→23:48)
[2022-12-12] MEDS: pantoprazole 40 mg SDV IVP (15:50)
[2022-12-12] MEDS: enoxaparin 40 mg/0.4 mL Syringe SUBCUT (15:50)
[2022-12-12] MEDS: sodium chloride 0.9% 1,000 ML 100 ML IV (15:55)
[2022-12-12 15:57] LABS: Thyroid Stimulating Hormone 2.12 uIU/mL (0.27-4.20)
[2022-12-12 17:47] LABS: Adenovirus Detected (NOT DETECT); Chlamydia Pneumoniae Not Detected (NOT DETECT); Coronavirus 229E,HKU1,NL63,OC4 Not Detected (NOT DETECT); Human Metapneumovirus Not Detected (NOT DETECT); Human Rhinovirus/Enterovirus Not Detected (NOT DETECT); Influenza A Not Detected (NOT DETECT); Influenza A H1 Not Detected (NOT DETECT); Influenza A H1-2009 Not Detected (NOT DETECT); Influenza A H3 Not Detected (NOT DETECT); Influenza B Not Detected (NOT DETECT); Mycoplasma Pneumoniae Not Detected (NOT DETECT); Parainfluenza Virus Type 1 Not Detected (NOT DETECT); Parainfluenza Virus Type 2 Not Detected (NOT DETECT); Parainfluenza Virus Type 3 Not Detected (NOT DETECT); Parainfluenza Virus Type 4 Not Detected (NOT DETECT); Respiratory Syncytial Virus A Not Detected (NOT DETECT); Respiratory Syncytial Virus B Not Detected (NOT DETECT); SARS-COV-2 Not Detected (NOT DETECT)
[2022-12-13] MEDS: sodium chloride 0.9% 1,000 ML 100 ML IV (01:01)
[2022-12-13 03:36] LABS: Hematocrit 34.6 % (37.0-47.0); Hemoglobin 11.1 g/dL (11.5-15.3); Mean Corpuscular HGB Conc 32.1 g/dL (30.0-36.0); Mean Corpuscular Hemoglobin 28.3 pg (28.0-34.0); Mean Corpuscular Volume 88.3 fl (81-99); Mean Platelet Volume 10.9 fL (7.4-10.4); Platelet Count 133 10^3/cmm (130-400); Red Blood Count 3.92 10^6/uL (4.1-5.3); Red Cell Distribution Width 12.2 % (12.1-15.1); White Blood Count 3.1 10^3/uL (4.0-10.0)
[2022-12-13 03:54] LABS: Carbon Dioxide 24 mmol/L (22-29); Glucose 93 mg/dL (65-115); Magnesium 2.1 mg/dL (1.7-2.3); Phosphorus 3.2 mg/dL (2.5-4.5)
[2022-12-13 04:00] VITALS: BP 98/60; PULSE 76; PULSE 88; RESP 16; TEMP 36.3; O2SAT 97; O2SAT 98
[2022-12-13 04:07] LABS: Anion Gap 12.4 (5-19); Chloride 104 mmol/L (98-107); Sodium 137 mmol/L (136-145)
[2022-12-13] MEDS: ipratropium-albuterol 3 mL Neb INHALATION ×2 (04:11→08:28)
[2022-12-13 04:21] LABS: Blood Urea Nitrogen 5 mg/dL (6-20); Calcium 8.2 mg/dL (8.5-10.5); Osmolality Calculated 281 mOsm/kg (285-295)
[2022-12-13 04:22] LABS: Potassium 3.4 mmol/L (3.5-5.1)
[2022-12-13 04:31] LABS: Absolute Eosinophils 0.1 10^3/cmm (0.0-0.7); Absolute Segmented Neutrophil 1.1 10/cmm (1.6-7.1); Eosinophils 4 %; Lymphocytes 48 %; Lymphocytes Absolute 1.6 10^3/cmm (1.2-3.4); Monocytes Absolute 0.3 10^3/cmm (0.1-0.6); Segmented Neutrophils 36 %; Total Cells Counted 100 (0-100)
[2022-12-13 04:32] LABS: Absolute Neutrophil 1.1 10^3/cmm (1.4-6.5); Platelet Estimate Normal (Normal)
[2022-12-13 04:33] LABS: Toxic Granulation 1+
[2022-12-13 04:35] LABS: Giant Platelets Trace
[2022-12-13 04:36] LABS: Anisocytosis Trace
[2022-12-13] MEDS: cefTRIAXone 1,000 MG in sodium chloride 0.9% (plus) 50 ML 100 MG IV (06:16)
[2022-12-13] MEDS: HYDROcodone-acetaminophen 5-325 mg Tablet 1 TAB PO (06:22)
[2022-12-13] MEDS: azithromycin 500 MG in sodium chloride 0.9% 250 ML 250 MG IV (06:51)
[2022-12-13 08:00] VITALS: BP 107/71; PULSE 85; RESP 16; TEMP 36.8; O2SAT 97
[2022-12-13 08:29] VITALS: PULSE 84; RESP 16; O2SAT 98
[2022-12-13] MEDS: potassium chloride ER 20 mEq Tablet 40 MEQ PO (08:59)
[2022-12-13] MEDS: venlafaxine ER (24HR) 150 mg Capsule PO (08:59)
--- NOTE | 2022-12-13 09:18 | P.DS_ITS ---
Discharge Providers Date of Admission: 12/12/22 12:32 Date of Discharge: December 13, 2022 Attending Provider at Admission: Amos Izquierdo MD Attending Provider at Discharge: Amos Izquierdo MD Primary Care Provider: Pawan Walsh MD Diagnoses at Discharge Discharge Diagnosis (1) Left lower lobe pneumonia: Status: Acute (2) Nausea and vomiting: Status: Acute (3) Hypokalemia: Status: Acute (4) Hyponatremia: Status: Acute Reason for Visit Reason for Visit: cough/sob/n/v/fever Hospital Course Hospital Course Jaqueline Anne is a 22 year old female with a past medical history of pcos, chronic low back pain, major depression, anxiety, obesity, who presents to [facility] who presents for complaints of cough, fever since last yesterday, progressing to poor appetite, nausea, and vomiting. Patient statest that since last wednesday she has had fever, cough, fatigue and malaise. She has been diagnosed with pneumonia, and has been on 2 course of oral antibiotics. But she coutinues to be symptomatic, but now has nausea, and vomiting, and is unable to keep down liquids. denies flank pain, has chronic back pain, no dysuria, no hematuria, denies chest pain, denies shortness of breath Patient was admitted to [facility] for left lower lobe pneumonia and adenovirus, received aspirin therapy, IV hydration therapy, nebulizer treatment treatment, patient overall clinically improved, discharged home. With 5 remaining days of Levaquin, Zofran for nausea, instructions to drink plenty of electrolyte balance fluids Physical Exam Const: COMMON NORMALS: no acute distress and patient oriented x3 Resp: COMMON NORMALS: normal respiratory effort, No retractions, No use of accessory muscles and clear to auscultation bilaterally AUSCULTATION: clear to auscultation bilaterally Cardio: COMMON NORMALS: regular rate, regular rhythm, S1 normal heart sound present and S2 normal heart sound present RATE: regular rate RHYTHM: regular rhythm HEART SOUNDS: S1 normal heart sound present and S2 normal hea rt sound present GI: COMMON NORMALS: Normal to inspection, nondistended, normoactive bowel sounds present Extremity: COMMON NORMALS: no pedal edema Neuro: COMMON NORMALS: patient oriented x3 Psych: COMMON NORMALS: mental status grossly normal Discharge Data Studies Completed and Pending Completed Studies During Hospitalization Category Date Time Status XR KUB portable [id number] Routine Exams 12/12/22 14:58 Completed XR chest 2V* [id number] Stat Exams 12/12/22 11:04 Completed Pending at discharge Category Date Time Status Basic Metabolic Panel AM LABS Lab 12/14/22 04:00 Ordered Basic Metabolic Panel AM LABS Lab 12/15/22 04:00 Ordered Blood Culture Stat Lab 12/12/22 13:09 Results Complete Blood Count w/Auto AM LABS Lab 12/14/22 04:00 Ordered Complete Blood Count w/Auto AM LABS Lab 12/15/22 04:00 Ordered Magnesium AM LABS Lab 12/14/22 04:00 Ordered Magnesium AM LABS Lab 12/15/22 04:00 Ordered Phosphorus AM LABS Lab 12/14/22 04:00 Ordered Phosphorus AM LABS Lab 12/15/22 04:00 Ordered Sputum Culture and Gram Stain Stat Lab 12/12/22 14:26 Uncollected Radiology Impressions Chest X-Ray 12/12/22 11:04 IMPRESSION: Left basilar consolidation concerning for pneumonia. KUB X-Ray 12/12/22 14:58 IMPRESSION: Nonspecific bowel gas pattern with mild increased gas within the GI tract could indicate mild ileus. No obstructive pattern. Laboratory Results WBC 3.1 10^3/uL (4.0-10.0) L 12/13/22 02:54 RBC 3.92 10^6/uL (4.1-5.3) L 12/13/22 02:54 Hgb 11.1 g/dL (11.5-15.3) L 12/13/22 02:54 Hct 34.6 % (37.0-47.0) L 12/13/22 02:54 MCV 88.3 fl (81-99) 12/13/22 02:54 MCH 28.3 pg (28.0-34.0) 12/13/22 02:54 MCHC 32.1 g/dL (30.0-36.0) 12/13/22 02:54 RDW 12.2 % (12.1-15.1) 12/13/22 02:54 Plt Count 133 10^3/cmm (130-400) 12/13/22 02:54 MPV 10.9 fL (7.4-10.4) H 12/13/22 02:54 Neut % (Auto) 59.6 % 12/12/22 11:27 Lymph % (Auto) Not Reportable 12/13/22 02:54 Sully % (Auto) Not Reportable 12/13/22 02:54 Eos % (Auto) 0.9 % 12/12/22 11:27 Baso % (Auto) 0.3 % 12/12/22 11:27 Neut # (Auto) 1.90 10^3/uL (1.8-7.7) 12/12/22 11:27 Lymph # (Auto) Not Reportable 12/13/22 02:54 Sully # (Auto) Not Reportable 12/13/22 02:54 Eos # (Auto) 0.0 10^3/uL (0.0-0.8) 12/12/22 11:27 Baso # (Auto) 0.0 10^3/uL (0.0-0.1) 12/12/22 11:27 Nucleated RBC % (auto) 0 % 12/12/22 11:27 Total Counted 100 (0-100) 12/13/22 02:54 Atypical Lymphs % 2.0 % (0-5) 12/13/22 02:54 Absolute Neutrophils 1.1 10^3/cmm (1.4-6.5) L 12/13/22 02:54 Segmented Neutrophils 36 % 12/13/22 02:54 Abs Segm Neuts (Man) 1.1 10/cmm (1.6-7.1) L 12/13/22 02:54 Band Neutrophils 1.0 % 12/13/22 02:54 Abs Band Neuts (Man) 0.0 10^3/cmm (0.0-1.2) 12/13/22 02:54 Absolute Lymphocytes 1.6 10^3/cmm (1.2-3.4) 12/13/22 02:54 Lymphocytes (Manual) 48 % 12/13/22 02:54 Monocytes (Manual) 9.0 % 12/13/22 02:54 Absolute Monocytes 0.3 10^3/cmm (0.1-0.6) 12/13/22 02:54 Eosinophils (Manual) 4 % 12/13/22 02:54 Absolute Eosinophils 0.1 10^3/cmm (0.0-0.7) 12/13/22 02:54 Basophils (Manual) 0.0 % 12/13/22 02:54 Absolute Basophils 0.0 10^3/cmm (0.0-0.2) 12/13/22 02:54 Nucleated RBCs # 0.0 /100WBC 12/12/22 11:27 Toxic Granulation 1+ H 12/13/22 02:54 Platelet Estimate Normal (Normal) 12/13/22 02:54 Giant Platelets Trace 12/13/22 02:54 Anisocytosis Trace 12/13/22 02:54 Sodium 137 mmol/L (136-145) 12/13/22 02:54 Potassium 3.4 mmol/L (3.5-5.1) L 12/13/22 02:54 Chloride 104 mmol/L (98-107) 12/13/22 02:54 Carbon Dioxide 24 mmol/L (22-29) 12/13/22 02:54 Anion Gap 12.4 (5-19) 12/13/22 02:54 BUN 5 mg/dL (6-20) L 12/13/22 02:54 Creatinine 0.6 mg/dL (0.5-0.9) 12/13/22 02:54 GFR Calculation 125.0 mL/min (90-130) 12/13/22 02:54 Glucose 93 mg/dL (65-115) 12/13/22 02:54 Calculated Osmolality 281 mOsm/kg (285-295) L 12/13/22 02:54 Lactate 0.8 mmol/L (0.5-2.2) 12/12/22 11:27 Calcium 8.2 mg/dL (8.5-10.5) L 12/13/22 02:54 Phosphorus 3.2 mg/dL (2.5-4.5) 12/13/22 02:54 Magnesium 2.1 mg/dL (1.7-2.3) 12/13/22 02:54 Total Bilirubin 0.5 mg/dL (0.15-1.2) 12/12/22 11:27 AST 17 U/L (0-32) 12/12/22 11:27 ALT 16 U/L (0-33) 12/12/22 11:27 Alkaline Phosphatase 43 U/L (35-105) 12/12/22 11:27 Total Protein 7.1 g/dL (6.6-8.7) 12/12/22 11: Albumin 3.3 g/dL (3.5-5.2) L 12/12/22 11: Globulin 3.8 g/dL (1.3-4.6) 12/12/22 11: Procalcitonin 0.10 ng/mL (0-0.5) 12/12/22 11: TSH 2.12 uIU/mL (0.27-4.20) 12/12/22 11: HCG, Qual Negative (Negative) 12/12/22 11:27 Urine Color Yellow (Yellow) 12/12/22 11:28 Urine Appearance Sl hazy (CLEAR) A 12/12/22 11:28 Urine pH 8 (5-7) H 12/12/22 11:28 Ur Specific [place] 1.005 (1.005-1.030) 12/12/22 11:28 Urine Protein Neg (Negative) 12/12/22 11:28 Urine Glucose (UA) Norm (Normal) 12/12/22 11:28 Urine Ketones 1+ (Negative) H 12/12/22 11:28 Urine Blood 3+ (Negative) H 12/12/22 11:28 Urine Nitrate Negative (Negative) 12/12/22 11:28 Urine Bilirubin Neg (Negative) 12/12/22 11:28 Prot Sulfosalicylic Acd Negative (Negative) 12/12/22 11:28 Urine Urobilinogen Norm mg/dL (Negative) 12/12/22 11:28 Ur Leukocyte Esterase 1+ (Negative) H 12/12/22 11:28 Urine RBC 5-10 /hpf (0-2) H 12/12/22 11:28 Urine WBC 15-25 /hpf (0-5) H 12/12/22 11:28 Ur Squamous Epith Cells 10-15 /hpf (0-5) H 12/12/22 11:28 Amorphous Sediment Not Reportable 12/12/22 11:28 Urine Bacteria 2+ /hpf (NONE) H 12/12/22 11:28 Urine Mucus Trace /hpf 12/12/22 11:28 Nasal Influ A H1 2009 PCR Not detected (NOT DETECT) 12/12/22 16:00 Adenovirus (PCR) Detected (NOT DETECT) A 12/12/22 16:00 C. pneumoniae DNA (PCR) Not detected (NOT DETECT) 12/12/22 16:00 Coronavirus 229E (PCR) Not detected (NOT DETECT) 12/12/22 16:00 Human Metapneumovir PCR Not detected (NOT DETECT) 12/12/22 16:00 Influenza A (H1) PCR Not detected (NOT DETECT) 12/12/22 16:00 Influenza A (H3) PCR Not detected (NOT DETECT) 12/12/22 16:00 Influenza Type A (PCR) Not detected (NOT DETECT) 12/12/22 16:00 Influenza Type B (PCR) Not detected (NOT DETECT) 12/12/22 16:00 M. pneumoniae (PCR) Not detected (NOT DETECT) 12/12/22 16:00 Parainfluenza 1 (PCR) Not detected (NOT DETECT) 12/12/22 16:00 Parainfluenza 2 (PCR) Not detected (NOT DETECT) 12/12/22 16:00 Parainfluenza 3 (PCR) Not detected (NOT DETECT) 12/12/22 16:00 Parainfluenza 4 (PCR) Not detected (NOT DETECT) 12/12/22 16:00 RSV Type A (PCR) Not detected (NOT DETECT) 12/12/22 16:00 RSV Type B (PCR) Not detected (NOT DETECT) 12/12/22 16:00 Entero/Rhino (PCR) Not detected (NOT DETECT) 12/12/22 16:00 SARS-CoV-2 (PCR) Not detected (NOT DETECT) 12/12/22 16:00 Vitals Last Vital Signs Temp 98.2 F 12/13/22 08:00 Pulse 84 12/13/22 08:29 Resp 16 12/13/22 08:29 BP 107/71 12/13/22 08:00 Pulse Ox 98 12/13/22 08:29 O2 Del Method Room Air 12/13/22 08:29 Discharge Plan Discharge Patient Disposition: Home Condition: Stable Prescriptions: New albuterol sulfate 90 mcg/actuation HFA aerosol inhaler 1 inh inhalation Q6H PRN (Reason: shortness of breath or wheezing) Qty: 8.5 0RF Continued hydrocodone-acetaminophen 5-325 mg tablet 1 tab PO Q4H PRN (Reason: pain) 7 Days Qty: 28 0RF venlafaxine 150 mg capsule,extended release 24hr 150 mg PO DAILY Qty: 30 0RF buspirone 5 mg tablet 5 mg PO BID Qty: 60 0RF sumatriptan succinate 25 mg tablet See Rx Instructions PO .COMPLEX Qty: 10 0RF Rx Instructions: take 1 tab at onset of headache; if no relief may repeat 1 tab after at least 2 hrs; max = 4 tabs/24 hr PO norgestimate-ethinyl estradiol [Sprintec (28)] 0.25-35 mg-mcg tablet 1 tab PO ONCE Qty: 84 3RF ibuprofen 200 mg Capsule 800 mg PO Q6H PRN (Reason: Pain) acetaminophen 325 mg Capsule 650 mg PO QID PRN (Reason: Pain) levofloxacin 750 mg tablet 750 mg PO DAILY 5 Days Qty: 5 0RF Rx Instructions: start 12/14/2022 ondansetron 4 mg tablet,disintegrating 4 mg PO Q8H PRN (Reason: nausea and vomiting) 5 Days Qty: 15 0RF Discharge Orders: Discharge Order (Routine); Ordered 12/13/22 Ordered By: Amos Izquierdo Referrals: Pawan Walsh MD [Primary Care Provider] - Discharge Diet: Regular Discharge Activity: Resume usual activity Patient Instructions: Opioid Safety Activity Restrictions/Additional Instructions: - Please follow-up with a repeat chest x-ray in 6 weeks -Hydrate well with electrolyte balance fluids Discharge Attestations Time Spent in Discharge Care*: greater than 30 min Quality Metrics Clinical Quality Measures [ No reported AMI, CVA or VTE this stay] Coding Level of Care Code 20594 Total time (in minutes) for Discharge: 40 Diagnoses Left lower lobe pneumonia J18.9 Nausea and vomiting R11.2 Hypokalemia E87.6 Hyponatremia E87.1
[2022-12-13 10:27] VITALS: PULSE 84; RESP 16; O2SAT 98
== END 2022-12-13 10:16 | disposition home or self-care (01) ==
LOC: ER 12:32 → MEDSURG 13:49
PROVIDERS: Admitting Provider Family Medicine; Emergency Provider Emergency Medicine; PCP Family Medicine; Visit Provider Family Medicine
DX: J18.9 Pneumonia, unspecified organism (principal); E87.1 Hypo-osmolality and hyponatremia; E86.0 Dehydration; E87.6 Hypokalemia; R11.2 Nausea with vomiting, unspecified; F17.290 Nicotine dependence, other tobacco product, uncomplicated
CPT/HCPCS: 36415; 71046; 74018; 80048; 80053; 81001; 83605; 83735; 84100; 84145; 84443; 84703; 85007; 85025; 86403; 87040; 87486; 87581; 87633; 94640; 94664; 96361; 96365; 96372; 96375; 96376; 99285; C9113; G0378; J0456; J0696; J1650; J2405; J2543; J7030; J7050

== ENCOUNTER → 2023-11-30 10:43 | Outpatient (BNVA) | payer BC, MEDICAID, SELFPAY ==
--- NOTE | 2023-12-02 13:05 | CSC.QMHP_ITS ---
[facility] Contact Note [facility] Contact Note Presentation: Client arrived at [facility] [place] scheduled therapy visit with this internal communications writer. Client is pleasant throughout encounter and appeared very optimistic. Client has made tremendous progress meeting established treatment plan goals and reports feeling confident she can continue progress. On a scale of 1 to 10, Jaqueline reports her confidence in her abilities for continued success is an 8. Intervention: Jaqueline and this internal communications writer touched base on treatment goal progress. Client continues to make progress with all assigned goals and has completed the majority ahead of the initial time frames. She reports feeling much better when compared to her initial visit. Jaqueline has started gratitude journaling and reports it has helped her recognize her successes. She indicates she will continue to journal. The Adam Depression Inventory was self scored by client, indicating a score of 38 (Severe Depression). Client completed same inventory today and received a score of 13 (Mild Mood Disturbance). This internal communications writer continued to praise client and utilized complements to help client recognize success. Client and this internal communications writer agree that she feels confident in her ability to continue upward progress on her own. This will be client's final scheduled visit as she has met every goal. Client was encouraged to revisit facility if depressional symtoms returned or she found herself in a crisis.
== END ==
PROVIDERS: PCP Family Medicine; Visit Provider Registered Nurse Neonatal Intensive Care
DX: R39.9 Unspecified symptoms and signs involving the genitourinary system (principal)
CPT/HCPCS: 81000; 87086

== ENCOUNTER 2023-12-17 10:29 | Outpatient (CLI) | payer BC, MEDICAID, SELFPAY ==
--- NOTE | 2023-12-17 10:45 | US_ITS ---
WS: [id number] US pelv w/transvag [id number] HISTORY: R ovarian tenderness COMPARISON: None available. Uterus: 7.1 cm x 3.9 cm x 2.8 cm. Normal size anteverted uterus. No fibroid or mass. Endometrium: 0.6 cm. Normal. No mass or increased vascularity. Right ovary: 3.5 cm x 2.9 cm x 2.7 cm. Normal size and vascularity, no cystic or solid masses. Multip le small peripheral follicles. Left ovary: 3.9 cm x 2.9 cm x 2.3 cm. Normal size and vascularity, no cystic or solid masses. Multipl e small peripheral follicles. Physiologic free fluid in the cul-de-sac. IMPRESSION: 1. Normal endometrium. 2. Numerous small peripheral follicles within each ovary. The ovaries are minimally enlarged. Due to the distribution and number of follicles consider polycystic ovarian syndrome.
== END 2023-12-17 10:30 | disposition home or self-care (01) ==
LOC: RAD 10:30
PROVIDERS: PCP Family Medicine; Visit Provider Family Medicine
DX: R10.31 Right lower quadrant pain (principal)
CPT/HCPCS: 76830; 76856

== ENCOUNTER → 2024-06-29 12:02 | Outpatient (BNVA) | payer BC, MEDICAID, SELFPAY | PROVIDERS: PCP Family Medicine; Visit Provider Family Medicine | DX: Z30.9 Encounter for contraceptive management, unspecified (principal); Z30.41 Encounter for surveillance of contraceptive pills; E28.2 Polycystic ovarian syndrome | CPT/HCPCS: 80053; 81025; 82672; 82728; 83001; 83002; 83550; 84144; 84439; 84443; 85025 ==